=== PATIENT | male | born 2000 | race African-American/Black ===

== ENCOUNTER 2020-02-13 16:02 | Emergency (ER) | payer OTHER ==
[~2020-02-13] VITALS: Ht 180.3 cm; Wt 84.1 kg
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
[2020-02-13] MEDS ORDERED: ROBA750T4 PO (18:03)
[2020-02-13 18:10] VITALS: BP 124/70
== END 2020-02-13 18:15 | disposition home or self-care (01) ==
LOC: M ED 16:02
DX: F07.81 Postconcussional syndrome (principal); S39.012A Strain of muscle, fascia and tendon of lower back, initial encounter; V49.40XA Driver injured in collision with unspecified motor vehicles in traffic accident, initial encounter